=== PATIENT | male | born 1990 | race Caucasian/White ===

== ENCOUNTER → 2023-01-31 15:49 | Outpatient (CLI) | payer OTHER, SELFPAY ==
--- NOTE | 2023-01-31 15:53 | DI.RAD.S_ITS ---
PROCEDURE: XR FINGER RT MIN 2V INDICATIONS: Right finger pain TECHNIQUE: AP hand, 2 views of the 2nd finger(s) acquired. COMPARISON: None. FINDINGS: Bones: Comminuted 2nd proximal phalangeal fracture. Remainder of the osseous structures unremarkable Soft tissues: No suspicious soft tissue calcifications. IMPRESSION: Comminuted 2nd proximal phalangeal fracture Approved by: Patrick Lantigua M.D. on 01/31/2023 at 18:01
== END ==
PROVIDERS: Referring Provider Orthopaedic Surgery; Visit Provider Orthopaedic Surgery
DX: S62.610A Displaced fracture of proximal phalanx of right index finger, initial encounter for closed fracture (principal); M79.644 Pain in right finger(s); X58.XXXA Exposure to other specified factors, initial encounter
CPT/HCPCS: 73140